=== PATIENT | female | born 1945 | race Caucasian/White ===

== ENCOUNTER 2018-02-18 08:53 | Outpatient (CLI) | payer MEDICARE ==
[2018-02-18 10:25] LABS: #Basophils 0.1 thou/uL (0.0-0.2); #Eosinphils 0.2 thou/uL (0.0-0.7); #Lymphocytes 2.8 thou/uL (1.20-3.40); #Monocytes 0.6 thou/uL (0.11-0.59); %Basophils 1.3 % (0.0-1.0); %Eosinophils 2.4 % (0.0-10.0); %Lymphocytes 32.1 % (21.0-51.0); %Monocytes 6.9 % (0.0-10.0); %Neutrophils 57.4 % (42.0-75.0); Hemoglobin 14.9 g/dL (12.0-16.0); Mean Corpuscular HGB CONC 33.1 g/dL (32.0-36.0); Mean Corpuscular Hemoglobin 30.5 pg (27.0-31.0); Platelet Count 202 thou/uL (130-400); RBC Distribution Width 13.2 % (11.5-14.5); White Blood Cell (WBC) Count 8.6 thou/uL (4.8-10.8)
[2018-02-18 10:55] LABS: ALT (SGPT) 7 U/L (8-55); AST (SGOT) 14 U/L (5-34); Albumin 3.8 g/dL (3.4-4.8); Alkaline Phosphatase 60 U/L (40-150); Anion Gap 15 mmol/L (10-20); BUN (Urea Nitrogen) 11 mg/dL (9.8-20.1); Bilirubin, Total 0.7 mg/dL (0.2-1.2); Calc. Creatinine Clearance 0 mL/min (70-130); Calcium 9.3 mg/dL (7.8-10.44); Carbon Dioxide 23 mmol/L (23-31); Cardiac Risk 5.4 (Less than 4.5); Chloride 107 mmol/L (98-107); Cholesterol 253 mg/dl (< 200 Desired); Estimated GFR-MDRD 65; Globulin 2.6 g/dL (2.4-3.5); Glucose 89 mg/dL (83-110); HDL Cholesterol 47 mg/dL (>60 Neg Risk); LDL Cholesterol, Calculated 186 mg/dL; Potassium 4.5 mmol/L (3.5-5.1); Protein, Total 6.4 g/dL (6.0-8.3); Sodium 140 mmol/L (136-145); Triglycerides 98 mg/dL (Less than 150)
[2018-02-18 17:27] LABS: Vitamin D, 25 Hydroxy 10.7 ng/ml (> 30.0)
[2018-02-18 19:26] LABS: Follow-up Chemistry Comp? YES; Follow-up Hematology Comp? YES; Follow-up Result - Chemistry REPORT FAXED; Follow-up Result - Hematology REPORT FAXED
[2018-02-19 16:18] LABS: Thyroid Stimulating Hormone 2.2707 uIU/mL (0.35-4.94)
== END 2018-02-18 08:54 | disposition home or self-care (01) ==
LOC: MADLAB 08:53
PROVIDERS: ATTEND Family Medicine
DX: E78.4 Other hyperlipidemia (principal); R53.1 Weakness; E56.9 Vitamin deficiency, unspecified
CPT/HCPCS: 80050; 80061; 82306; 82607

== ENCOUNTER 2021-04-24 09:58 | Emergency (ER) | payer MEDICARE | END 2021-04-24 11:50 | disposition home or self-care (01) | LOC: MADERS 09:58 | DX: J44.1 Chronic obstructive pulmonary disease with (acute) exacerbation (principal); F17.210 Nicotine dependence, cigarettes, uncomplicated | CPT/HCPCS: 71045; 99406 ==

== ENCOUNTER 2022-02-09 09:10 | Outpatient (CLI) | payer MEDICARE, OTHER ==
[2022-02-09 10:37] LABS: ALT (SGPT) 9 U/L (8-55); AST (SGOT) 16 U/L (5-34); Albumin 3.9 g/dL (3.4-4.8); Alkaline Phosphatase 61 U/L (40-110); Anion Gap 10 mmol/L (10-20); BUN (Urea Nitrogen) 13 mg/dL (9.8-20.1); Bilirubin, Total 0.4 mg/dL (0.2-1.2); Calc. Creatinine Clearance 0 mL/min (70-130); Calcium 9.4 mg/dL (7.8-10.44); Carbon Dioxide 31 mmol/L (23-31); Cardiac Risk 4.4 (Less than 4.5); Chloride 103 mmol/L (98-107); Cholesterol 257 mg/dl (< 200 Desired); Estimated GFR 73; Glucose 89 mg/dL (83-110); HDL Cholesterol 58 mg/dL (>60 Neg Risk); LDL Cholesterol, Calculated 183 mg/dL; Potassium 4.6 mmol/L (3.5-5.1); Protein, Total 6.9 g/dL (5.8-8.1); Sodium 139 mmol/L (136-145); Triglycerides 81 mg/dL (Less than 150)
[2022-02-09 10:49] LABS: Thyroid Stimulating Hormone 2.6496 uIU/mL (0.35-4.94)
[2022-02-09 16:34] LABS: Free T4 (Free Thyroxine) 0.86 ng/dL (0.70-1.48)
== END 2022-02-09 09:11 | disposition home or self-care (01) ==
LOC: MADEKG 09:10
PROVIDERS: ATTEND Family Medicine
DX: R00.2 Palpitations (principal); R09.89 Other specified symptoms and signs involving the circulatory and respiratory systems; F17.210 Nicotine dependence, cigarettes, uncomplicated
CPT/HCPCS: 80053; 80061; 84439; 84443; 84481; 93005; 93010

== ENCOUNTER 2022-06-25 14:02 | Emergency (ER) | payer MEDICARE, OTHER ==
[2022-06-25] MEDS ORDERED: Ondansetron ODT 4 MG TAB ONE (14:56)
[2022-06-25] MEDS ORDERED: Ibuprofen 800 MG TAB ONE (14:56)
[2022-06-25] MEDS ORDERED: Sodium Chloride 0.9% 1,000 ML ONE (16:13)
[2022-06-25 16:41] LABS: #Basophils 0.1 thou/uL (0.0-0.2); #Lymphocytes 1.1 thou/uL (1.20-3.40); #Monocytes 0.7 thou/uL (0.11-0.59); #Neutrophils 4.4 thou/uL (1.40-6.50); %Basophils 1.8 % (0.0-1.0); %Eosinophils 0.3 % (0.0-10.0); %Lymphocytes 17.1 % (21.0-51.0); %Monocytes 10.4 % (0.0-10.0); %Neutrophils 70.5 % (42.0-75.0); Hemoglobin 11.7 g/dL (12.0-16.0); Mean Corpuscular HGB CONC 33.9 g/dL (32.0-36.0); Mean Corpuscular Hemoglobin 30.9 pg (27.0-31.0); Mean Corpuscular Volume 91.2 fl (78.0-98.0); Mean Platelet Volume 8.2 fL (7.4-10.4); Platelet Count 142 10x3/uL (130-400); RBC Distribution Width 11.9 % (11.5-14.5); White Blood Cell (WBC) Count 6.3 10x3/uL (4.8-10.8)
[2022-06-25 16:55] LABS: ALT (SGPT) 7 U/L (8-55); AST (SGOT) 16 U/L (5-34); Albumin 3.5 g/dL (3.4-4.8); Alkaline Phosphatase 74 U/L (40-110); Anion Gap 16 mmol/L (10-20); BUN (Urea Nitrogen) 9 mg/dL (9.8-20.1); Bilirubin, Total 0.7 mg/dL (0.2-1.2); Calc. Creatinine Clearance 0 mL/min (70-130); Calcium 8.6 mg/dL (7.8-10.44); Carbon Dioxide 20 mmol/L (23-31); Chloride 103 mmol/L (98-107); Estimated GFR 59; Globulin 2.7 g/dL (2.4-3.5); Glucose 98 mg/dL (83-110); Protein, Total 6.2 g/dL (5.8-8.1); Sodium 135 mmol/L (136-145)
[2022-06-25] MEDS ORDERED: Lactated Ringer's 1,000 ML ONE (17:47)
[2022-06-25] MEDS ORDERED: Acetaminophen 500 MG TAB ONE (17:47)
[2022-06-25 18:50] LABS: SARS-CoV-2 NAA Rapid Test DETECTED (NotDetected)
== END 2022-06-25 18:12 | disposition short-term general hospital (02) ==
LOC: MADERS 14:02
DX: U07.1 COVID-19 (principal); I95.9 Hypotension, unspecified; E86.0 Dehydration; B34.9 Viral infection, unspecified; I25.10 Atherosclerotic heart disease of native coronary artery without angina pectoris; Z87.891 Personal history of nicotine dependence
CPT/HCPCS: 71046; 80053; 83605; 84484; 85025; 87040; 87804; 96361; 96374; J1610; J7050; J7120; Q0162; U0002

== ENCOUNTER 2024-06-25 00:04 | Emergency (ER) | payer OTHER ==
[2024-06-25] MEDS ORDERED: Boostrix 0.5 ML (Tdap) VIAL (>/=7 yrs of age) ONE (00:37)
== END 2024-06-25 02:05 | disposition home or self-care (01) ==
LOC: MADERS 00:04
DX: S42.252A Displaced fracture of greater tuberosity of left humerus, initial encounter for closed fracture (principal); S00.81XA Abrasion of other part of head, initial encounter; I25.10 Atherosclerotic heart disease of native coronary artery without angina pectoris; R54 Age-related physical debility; F17.210 Nicotine dependence, cigarettes, uncomplicated; F17.290 Nicotine dependence, other tobacco product, uncomplicated; Z23 Encounter for immunization; Z79.82 Long term (current) use of aspirin; Z79.899 Other long term (current) drug therapy; Z95.1 Presence of aortocoronary bypass graft; W01.0XXA Fall on same level from slipping, tripping and stumbling without subsequent striking against object, initial encounter; Y93.89 Activity, other specified
CPT/HCPCS: 70450; 71045; 72125; 90471; 90715